=== PATIENT | female | born 1980 | race Caucasian/White ===

== ENCOUNTER 2020-01-22 14:13 | Outpatient (CLI) | payer BC, SELFPAY ==
--- NOTE | ~2020-01-22 | US_ITS ---
EXAMINATION: US pelvic complete w TV DATE: 01/22/2020 15:17 INDICATION: Pelvic pain and abnormal uterine bleeding, history of ablation in May 2019 TECHNIQUE: Multiple transabdominal and endovaginal sonographic images of the pelvis were obtained. COMPARISON: CT, 03/24/2015 FINDINGS: The uterus measures 10.3 x 7.8 x 8.8 cm. The endometrial complex measures 7 mm. There is a 6.5 x 6.5 x 4.7 cm area of heterogeneous echogenicity in the myometrium. This area does demonstrate i nternal blood flow. When compared to prior CT, a mass with the appearance of an intramural fibroid wi th seen in this location. The right ovary measures 4.5 x 2.7 x 1.5 cm. The left ovary measures 2.9 x 2.7 x 1.5 cm. There is no free fluid in the pelvis. IMPRESSION: 1. Likely intramural fibroid without definite etiology for abnormal bleeding identified. Reviewed, dictated and finalized at location B. IMPRESSION: 1. Likely intramural fibroid without definite etiology for abnormal bleeding id entified.
== END 2020-01-22 14:14 | disposition home or self-care (01) ==
LOC: ANHIMG 14:27
PROVIDERS: PCP Internal Medicine; Visit Provider Student in an Organized Health Care Education/Training Program
DX: R10.2 Pelvic and perineal pain (principal)
CPT/HCPCS: 76830; 76856

== ENCOUNTER 2020-02-13 11:40 | Outpatient (CLI) | payer BC, SELFPAY ==
--- NOTE | ~2020-02-13 | XR_ITS ---
XR heel LT min 2V DATE: 02/13/2020 12:03 INDICATION: Left foot pain TECHNIQUE: Axial and lateral views of the calcaneus COMPARISON: None FINDINGS: Mild plantar calcaneal enthesopathy without associated erosive changes or periostitis. No f racture, dislocation or bone destruction of the calcaneus. IMPRESSION: Plantar calcaneal enthesopathy Reviewed, dictated and finalized at location B.
== END 2020-02-13 11:41 | disposition home or self-care (01) ==
PROVIDERS: PCP Internal Medicine; Visit Provider Physician Assistant
DX: M77.32 Calcaneal spur, left foot (principal)
CPT/HCPCS: 73650

== ENCOUNTER 2020-08-13 18:26 | Emergency (ER) | payer BC, SELFPAY ==
--- NOTE | ~2020-08-13 | XR_ITS ---
EXAMINATION: XR chest 2V DATE: 08/13/2020 19:31 INDICATION: Left neck and arm pain. TECHNIQUE: Frontal and lateral views of the chest were obtained. COMPARISON: Chest 2 views 01/30/2014 FINDINGS: The chest demonstrates clear lungs without pneumonia, pleural effusion, or pneumothorax. Th e heart size is normal. Breast implants are noted. Surgical clips in the right upper quadrant are lik surjit from cholecystectomy. IMPRESSION: 1. No acute cardiopulmonary disease. Reviewed, dictated and finalized at location A.
--- NOTE | 2020-08-13 18:29 | ECG_ITS ---
Measurements Intervals [place] Rate: 77 P: 56 MN: 135 QRS: 67 QRSD: 90 T: 49 QT: 359 QTc: 406 Interpretive Statements SINUS RHYTHM Electronically Signed On 08-13-2020 20:14:57 CDT by Rell Roa D.O.
[2020-08-13 18:30] VITALS: BP 143/96; PULSE 86; RESP 20; TEMP 36.4; O2SAT 100
[2020-08-13 18:44] LABS: Basophils Percent Auto 0.2 % (0.2-1.2); Eosinophils Absolute Auto 0.1 K/mm3 (0-0.3); Eosinophils Percent Auto 1.7 % (0-4.4); Hematocrit 38.1 % (37.0-47.0); Hemoglobin 12.7 g/dL (12.0-15.0); Immature Granulocyte Absolute 0.03 K/mm3 (0.00-0.031); Immature Granulocyte Percent A 0.4 % (0-0.5); Lymphocytes Absolute Auto 1.79 K/mm3 (0.9-3.2); Lymphocytes Percent Auto 21.4 % (18.3-44.2); Mean Corpuscular HGB Conc 33.3 g/dl (32-36); Mean Platelet Volume 9.1 fl (7.4-10.4); Monocytes Absolute Auto 0.6 K/mm3 (0.1-0.6); Monocytes Percent Auto 7.4 % (2.6-8.5); Neutrophils Absolute Auto 5.8 K/mm3 (1.3-6.7); Neutrophils Percent Auto 68.9 % (45.5-73.1); Platelet Count Result 326 k/mm3 (150-375); Red Blood Count 3.97 M/mm3 (4.2-5.4); Red Cell Distribution Width 12.5 % (11.5-14.5); White Blood Count 8.4 K/mm3 (4.5-10.0)
[2020-08-13 18:54] LABS: Partial Thromboplastin Time 26.5 SECONDS (22.3-36.8); Prothrombin Time 13.7 Seconds (11.1-14.7)
[2020-08-13 19:02] LABS: Anion Gap 9 mmol/L (8-16); Blood Urea Nitrogen 16 mg/dL (7-17); Calcium 9.3 mg/dL (8.4-10.2); Carbon Dioxide 27 mmol/L (22-30); Chloride 103 mmol/L (98-107); Estimated CRCL calculation 93 ml/min; Estimated Glomerular Filt Rate > 60; Glucose 101 mg/dL (65-105); Potassium 3.3 mmol/L (3.4-5.0); Sodium 139 mmol/L (137-145)
[2020-08-13 19:14] LABS: Troponin I < 0.012 ng/mL (0.000-0.034)
--- NOTE | 2020-08-13 20:08 | ED.NECK ---
HPI - Neck Pain/Injury General Chief Complaint: Neck Pain/Injury Stated Complaint: left neck, arm pain Time Seen by Provider: 08/13/20 20:08 History of Present Illness HPI Narrative: Pain in the left side of the neck for the past week. [place] like sore muscle. Went to the chiropractor yesterday and improved initially. Awoke this moring with similar pain now radiating into the jaw as well. Also associated with tingling in the left hand. She became concerned that she may be having a heart attack. No Chest pain, SOB, nausea. Review of Systems Review of Systems: All systems reviewed & are unremarkable except as noted in HPI and below Constitutional: Constitutional: Denies fever(s) and Denies weakness Eyes: Eyes: Reports no additional eye complaints ENT: Denies dizziness Cardiovascular: Cardiovascular: Denies chest pain Respiratory: Respiratory: Denies dyspnea Gastrointestinal: Gastrointestinal: Denies abdominal pain Genitourinary: Genitourinary: Reports no additional female genitourinary complaints Musculoskeletal: Musculoskeletal: Denies back pain Neurologic: Reports system reviewed and no additional complaints, except as documented [facility] Social History Social History Smoking status: Never smoker Exam Const: General: healthy appearing, no acute distress and alert Orientation/consciousness: patient oriented x3 HENMT: Head: normal to inspection Neck: Other: tender over left SCM and trapezius Chest: Chest palpation & inspection: no tenderness Resp: Effort & Inspection: normal respiratory effort Auscultation: clear to auscultation bilaterally, no rales, no rhonchi and no wheezes Cardio: Jugular venous distension: no JVD Rate: regular rate Rhythm: regular rhythm Heart sounds: no murmurs GI: Inspection: non-distended GI Palp: Yes Soft to palpation and No Tenderness to palpation present (GI) Skin: General skin exam: normal color Neuro: General: patient oriented x3 and moves all extremities Speech: normal speech Extrem: General: no edema Psych: Appearance: well kempt Affect: normal affect Course Vital Signs Vital signs: Vital Signs Temperature 36.4 C 08/13/20 18:30 Pulse Rate 86 08/13/20 18:30 Respiratory Rate 20 08/13/20 18:30 Blood Pressure 143/96 H 08/13/20 18:30 Pulse Oximetry 100 08/13/20 18:30 Temperature 36.4 C 08/13/20 18:30 Pulse Rate 81 08/13/20 21:50 Respiratory Rate 16 08/13/20 21:50 Blood Pressure 135/69 08/13/20 21:50 Pulse Oximetry 100 08/13/20 21:50 MDM - Neck Pain/Injury Differential Diagnosis Differential diagnosis: Likely strain of neck muscle and other (angina) Medical Records Attestation: I reviewed the patient's medical records. Lab Data Attestation: I reviewed the patient's lab results. Result diagrams: 08/13/20 18:36 08/13/20 18:36 Labs: Lab Results 08/13/20 08/13/20 08/13/20 Range/Units 18:36 18:36 18:36 WBC 8.4 (4.5-10.0) K/mm3 RBC 3.97 L (4.2-5.4) M/mm3 Hgb 12.7 (12.0-15.0) g/dL Hct 38.1 (37.0-47.0) % MCV 96.0 (80-100) fl MCH 32.0 (26-34) pg MCHC 33.3 (32-36) g/dl RDW 12.5 (11.5-14.5) % Plt Count 326 (150-375) k/mm3 MPV 9.1 (7.4-10.4) fl Immature Gran % (Auto) 0.4 (0-0.5) % Neut % (Auto) 68.9 (45.5-73.1) % Lymph % (Auto) 21.4 (18.3-44.2) % [place] % (Auto) 7.4 (2.6-8.5) % Eos % (Auto) 1.7 (0-4.4) % Baso % (Auto) 0.2 (0.2-1.2) % Lymph # (Auto) 1.79 (0.9-3.2) K/mm3 [place] # (Auto) 0.6 (0.1-0.6) K/mm3 Eos # (Auto) 0.1 (0-0.3) K/mm3 Baso # (Auto) 0.0 (0.0-0.1) K/mm3 Abs Immat Gran (auto) 0.03 (0.00-0.031) K/mm3 Absolute Neuts (auto) 5.8 (1.3-6.7) K/mm3 Absolute Nucleated RBC 0.0 (0.0-0.012) K/mm3 Nucleated RBC % 0.0 (0.0-0.2) % PT 13.7 (11.1-14.7) Seconds INR 1.0 APTT 26.5 (22.3-36.8) SECONDS Sodium 139
[2020-08-13 21:50] VITALS: BP 135/69; PULSE 81; RESP 16; O2SAT 100
== END 2020-08-13 21:51 | disposition home or self-care (01) ==
PROVIDERS: Emergency Medicine; Emergency Provider Emergency Medicine; PCP Internal Medicine
DX: M54.12 Radiculopathy, cervical region (principal)
CPT/HCPCS: 36415; 71046; 80048; 84484; 85025; 85610; 85730; 93005; 99284

== ENCOUNTER 2020-11-05 09:11 | Outpatient (CLI) | payer BC, SELFPAY ==
[2020-11-05 09:57] LABS: Add Urine Microscopic? YES; Appearance Urine Cloudy (Clear); Bacteria Urine Trace /hpf; Bilirubin Urine Negative (Negative); Blood Urine Negative (Negative); Color Urine Yellow (Yellow); Glucose Urine UA Negative (Negative); Ketones Urine Negative (Negative); Leukocyte Esterase Ur 3+ LEU/UL (NEGATIVE); Nitrate Urine Negative (Negative); Protein Urine Negative (Negative); RBC Urine 0-2 /hpf (0-2); Specific Grav Ur 1.014 (1.001-1.035); Squamous Epithelial Cell Urine Many /hpf (Few); Urobilinogen Urine Negative mg/dL (<2.0)
[2020-11-05 16:06] LABS: Vitamin D 25 Hydroxy 74.8 ng/mL
== END 2020-11-05 09:12 | disposition home or self-care (01) ==
PROVIDERS: PCP Physician Assistant; Visit Provider Physician Assistant
DX: E55.9 Vitamin D deficiency, unspecified (principal); R30.0 Dysuria
CPT/HCPCS: 36415; 81001; 82306; 87086

== ENCOUNTER 2020-12-13 17:03 | Emergency (ER) | payer BC, SELFPAY ==
--- NOTE | 2020-12-13 17:19 | PC.NURSE ---
pt states she is leaving. states she is going to call pmd. notified of risks of leaving without being evaluated
== END 2020-12-13 17:35 | disposition left against medical advice (07) ==
DX: Z53.21 Procedure and treatment not carried out due to patient leaving prior to being seen by health care provider (principal)
CPT/HCPCS: 99199

== ENCOUNTER 2021-02-18 08:31 | Outpatient (CLI) | payer BC, SELFPAY | END 2021-02-18 08:32 | disposition home or self-care (01) | LOC: ANHSURGERY 08:36 | PROVIDERS: PCP Physician Assistant; Visit Provider Obstetrics & Gynecology | DX: R10.2 Pelvic and perineal pain (principal) | CPT/HCPCS: 36415; 86850; 86900; 86901 ==

== ENCOUNTER 2021-02-23 00:55 | Day surgery (SDC) | payer BC, SELFPAY ==
[2021-02-15 15:12] VITALS: BMI 23.1
[2021-02-23] VITALS (11 sets, daily range): BP systolic 105–139; BP diastolic 69–85; PULSE 71–89; RESP 11–18; TEMP 36.2–36.8; O2SAT 98–100
[2021-02-23] MEDS: ACETAMINOPHEN 500 MG TABLET 1000 MG PO (10:50)
[2021-02-23] MEDS: KETOROLAC 15 MG/ML VIAL (*BKC) IV PUSH (10:59)
[2021-02-23] MEDS: LACTATED RINGERS 1,000 ML 30 ML IV CONT ×2 (11:00→14:57)
--- NOTE | 2021-02-23 11:16 | P.PNAN_ITS ---
Anes - Initial Pre Proc Eval Procedure: Operation Date: 02/23/21 12:00 Proposed Procedures p Robotic Assisted Total Vaginal Hysterectomy with Bilateral Salpingectomy - Jose Rodriguez MD Date/Time: 02/23/21 11:16 Surgeon: Jose Rodriguez MD Pre Op Diagnosis: pelvic pain, enlarged uterus Patient Data Age: 40 Gender: F Height: 1.63 m Weight: 61.24 kg Allergies Allergy/AdvReac Type Severity Reaction Status Date / Time No Known Allergies Allergy Verified 02/15/21 15:06 Home Medications Medication Instructions Recorded Confirmed Type multivitamin 1 tablet PO DAILY 02/13/20 02/15/21 History lubiprostone 8 mcg capsule 8 mcg PO BID #60 cap 11/05/20 02/15/21 Rx hydrocodone-acetaminophen 1 - 2 tablet PO Q4-6H PRN 02/15/21 02/15/21 History Patient hx anesthesia problems: post op nausea/vomiting (scopolamine patch applied) Family hx anesthesia problems: none Results Review: All pre-operative results and documents have been reviewed as part of the pre-operative evaluation. [facility] Past Medical History Medical History (Updated 11/05/20 @ 08:53 by Sanjeev Agudelo PA-C) Cervical abrasion FH: cholecystectomy Surgical History Surgical History H/O dilation and curettage H/O lumpectomy History of bilateral tubal ligation Family History Family History Father Leukemia Mother No problems noted. Mother Family history of epilepsy Patient's mother is in good health Father Patient's father is Family history of malignant neoplasm Other Cerebrovascular accident Family history of allergic disorder Hypertension Social History Social History Smoking packs per day: 0.1 Smoking cigarettes per day: 2.0 Years smoked: 4 Smoking pack-years: 0.40 Smoking status: Former smoker Tobacco type: cigarettes Second hand tobacco smoke exposure: No Smoking end date: 02/15/11 Alcohol intake: current Drinks per week: 2 Alcohol use details: BEER Substance use: never Living arrangements: with family Spiritual care concerns: No Anes - Eval Final PreProcedure Day of Procedure 02/23/21 11:16 Patient weight: normal Heart: regular rate and rhythm Lungs: clear to auscultation Airway: Mallampati scale class II Neurological: alert and oriented Last oral intake: >/= 8 hours ASA classification: II Emergent: no Anesthetic plan: proceed Anesthesia type and monitoring: general ETT and standard monitoring Results Review: All pre-operative results and documents have been reviewed as part of the pre-operative evaluation. Informed Consent: The patient's anesthetic plan and its attendant risks and benefits were discussed with the patient/family/POA. Questions were solicited and answers provided to the satisfaction of the patient/family/POA.
[2021-02-23] MEDS: SCOPOLAMINE 1.5 MG PATCH TRANSDERM (11:19)
--- NOTE | 2021-02-23 12:11 | PM.IMHP ---
H&P: HPI History of Present Illness Date/Time: 02/23/21 12:11 40 y/o with fibroid uterus. She has had an endometrial ablation and a tubal ligation, and her menstrual flow is very light. But she still has quite a lot of cramping. Sometimes her pain is incapacitating, and it has worsened each cycle. She is here for definitive management with hysterectomy. Chief Complaint: Painful periods Review of Systems Review of Systems: All systems reviewed & are unremarkable except as noted in HPI and below PMFSH Past Medical History Medical History (Updated 02/23/21 @ 12:15 by Jose Rodriguez MD) Cervical abrasion FH: cholecystectomy Surgical History Surgical History H/O dilation and curettage H/O lumpectomy History of bilateral tubal ligation History of breast augmentation History of endometrial ablation Family History Family History Father Leukemia Mother No problems noted. Mother Family history of epilepsy Patient's mother is in good health Father Patient's father is Family history of malignant neoplasm Other Cerebrovascular accident Family history of allergic disorder Hypertension Social History Social History Smoking packs per day: 0.1 Smoking cigarettes per day: 2.0 Years smoked: 4 Smoking pack-years: 0.40 Smoking status: Former smoker Tobacco type: cigarettes Second hand tobacco smoke exposure: No Smoking end date: 02/15/11 Alcohol intake: current Drinks per week: 2 Alcohol use details: BEER Substance use: never Living arrangements: with family Spiritual care concerns: No Meds Home Medications and Allergies Home Medications Medication Instructions Recorded Confirmed Type multivitamin 1 tablet PO DAILY 02/13/20 02/23/21 History lubiprostone 8 mcg capsule 8 mcg PO BID #60 cap 11/05/20 02/23/21 Rx hydrocodone-acetaminophen 1 - 2 tablet PO Q4-6H PRN 02/15/21 02/23/21 History Allergies Allergy/AdvReac Type Severity Reaction Status Date / Time No Known Allergies Allergy Verified 02/23/21 11:29 Vital Signs Vital Signs - 24 hr 02/23/21 11:00 Temperature 36.7 C Pulse Rate 87 Respiratory Rate 18 Blood Pressure 139/73 Pulse Oximetry 100 Exam Const: Orientation/consciousness: patient oriented x3 Other: Well-developed, well-nourished female in no acute distress. Neck: Thyroid: thyroid normal Lymphatic: no lymphadenopathy noted (in neck, axilla or inguinal nodes) Resp: Effort & Inspection: normal respiratory effort Auscultation: clear to auscultation bilaterally Cardio: Rate: regular rate Rhythm: regular rhythm Heart sounds: S1 normal heart sound present and S2 normal heart sound present GI: Other: ABD: Soft, nontender, nondistended. No guarding or rebound tenderness. No hepatosplenomegaly. : General: Yes no CVA tenderness Other: External genitalia: normal female hair distribution, without lesion. Urethral meatus: no lesion, non prolapsed. Bladder: no mass, nontender Vagina: well-estrogenized, without lesion or discharge. No cystocele or rectocele. Cervix: no lesion or discharge. Uterus: enlarged, anteverted, freely mobile, nontender Adnexa: no mass or tenderness. Anus/perineum: no lesions, nontender Back/Spine/Pelvis: Back: no CVA tenderness Skin: General skin exam: normal color and no rashes or lesions noted Neuro: General: patient oriented x3 Extrem: Other: Extremities: nontender with no edema Psych: Mental Status: mental status grossly normal Affect: normal affect Assessment and Plan Assessment and plan (1) Fibroid uterus: Code(s): D25.9 - Leiomyoma of uterus, unspecified Status: Acute (2) Pelvic pain: Code(s): R10.2 - Pelvic and perineal pain Status: Acute Assessment and Plan:
--- NOTE | 2021-02-23 12:17 | WPDHPUPDATE1 ---
History and Physical Update Update Date/Time: 02/23/21 12:17 History and Physical has been reviewed, including an updated exam of the patient. There are NO changes in the patient's condition. Risks, benefits, and alternatives have been discussed and questions answered. Patient agrees to proceed with procedure.
[2021-02-23] MEDS: ceFAZolin 2 GM/D5W 50 ML 2 GM/50 ML BAG IVPB (12:32)
--- NOTE | 2021-02-23 14:15 | W.PM.PROC2 ---
Procedure Note - Detailed Date of Procedure 02/23/21 Pre-op Diagnosis Fibroid uterus Dysmenorrhea Pelvic pain Post-op Diagnosis same Procedure Performed Robotic assisted total vaginal hysterectomy with bilateral salpingectomies Surgeon Jose Rodriguez MD Anesthesia general Findings Enlarged, fibroid uterus. Small right ovarian cyst. Normal-appearing left ovary. Bilateral tubes with prior tubal ligation. Normal-appearing pelvis otherwise. Bilateral ureters were visualized throughout the procedure. Description of Procedure The patient was taken to the operating room where general endotracheal anesthesia was administered. She was prepared and draped in the usual sterile fashion in the dorsal lithotomy position. The bladder was drained with Murray catheter. The cervix was visualized and the anterior lip was grasped using a single-tooth tenaculum. The cervix was gently dilated using Hegar dilators. The DENNY 2 uterine manipulator was then placed and the tenaculum was removed. Gloves were changed and attention was turned to the abdomen. A supraumbilical skin incision was made with the scalpel. The Veress needle was advanced and pneumoperitoneum was administered using carbon dioxide gas. The bladeless trocar was then advanced. Intraperitoneal placement was confirmed using the laparoscope. A survey of the pelvis yielded the findings above. The vermiform appendix looked a little enlarged to me. Dr. Elizondo of general surgery was asked to offer an opinion, and he believed appendix to be within normal limits. Lateral ports and an pizza hut assistant port were all placed using bladeless trocars under direct laparoscopic visualization. She was placed in Trendelenburg position and the patient cart was docked. I assumed the console. The ureters were visualized bilaterally. The round ligament on the right was divided. The Fallopian tube was dissected free of the right ovary. The uteroovarian ligament was divided. The broad ligament was divided, skeletonizing the uterine artery on the right. The bladder was reflected away. The left side was similarly dissected. Colpotomy was performed circumferentially. The specimen was removed and passed off to be sent to pathology. The vaginal cuff was reapproximated using 0 Vicryl in interrupted [id number] fashion. The pelvis was irrigated copiously using warmed normal saline. Rigorous hemostasis was assured. HemaDerm was applied to the vaginal cuff. The pedicles were inspected once again. The ports were then withdrawn and the gas was allowed to escape. The skin incisions were reapproximated using 4 0 Monocryl in interrupted subcuticular fashion. Dermaflex was applied externally. Sponge, lap, needle and instrument counts were correct. The patient was awakened and taken to the recovery room in stable condition. I was present and scrubbed through the entire procedure. Estimated Blood Loss 50 Drains Yes (murray) Packing No Pathology yes (Uterus, cervix, bilateral tubes) Complications None Condition stable Disposition PACU
[2021-02-23] MEDS: fentaNYL CITRATE INJ (*CRX) 100 MCG/2 ML VIAL 25 MCG IV PUSH ×6 (14:40→15:23)
--- NOTE | 2021-02-23 15:54 | SUR.PHASEI ---
25 mcg of fentanyl given at 1545.
[2021-02-23] MEDS: MORPHINE SULFATE (*CRX) 4 MG/ML INJ IV PUSH (16:36)
[2021-02-23] MEDS: SIMETHICONE 80 MG TAB.CHEW PO ×2 (16:36→18:51)
[2021-02-23] MEDS: ONDANSETRON INJ 4 MG/2 ML VIAL IV PUSH (16:36)
[2021-02-23] MEDS: DEXTROSE 5%/0.45% SOD CHL 1,000 ML 125 ML IV CONT (16:39)
--- NOTE | 2021-02-23 16:47 | ADMGEN ---
1555-This patient, Veena Nunez, was admitted to OB 2nd Floor Room 283-00. Patient/family oriented to hospital policies and general routines including ID bracelet, bed and alarms, visiting hours, pain management, procedures, bathroom and other care routines, personal items, smoking policy, room service/diet, and visiting hours. Information on how to activate the Rapid Response Team has been discussed. Patient/Family are encouraged to report perceived risks to care and to ask questions if they do not understand what they are told or what they should do.
[2021-02-23] MEDS: HYDROcodone/acetaminophen (*CRX) 5-325 MG TABLET 1 TAB PO (18:53)
[2021-02-23] MEDS: IBUPROFEN 600 MG TABLET PO (18:54)
[2021-02-23] MEDS: ENOXAPARIN 40 MG/0.4 ML SYRINGE SUB-Q (21:06)
[2021-02-24] MEDS: SIMETHICONE 80 MG TAB.CHEW PO ×2 (00:23→08:22)
[2021-02-24] MEDS: IBUPROFEN 600 MG TABLET PO ×2 (00:24→08:21)
[2021-02-24] MEDS: HYDROcodone/acetaminophen (*CRX) 5-325 MG TABLET 1 TAB PO ×2 (00:24→08:22)
[2021-02-24 00:30] VITALS: BP 115/87; PULSE 89; RESP 18; TEMP 36.8; O2SAT 100
[2021-02-24 05:20] VITALS: BP 117/80; PULSE 86; RESP 18; TEMP 36.8
[2021-02-24 05:53] LABS: Basophils Percent Auto 0.3 % (0.2-1.2); Eosinophils Percent Auto 0.1 % (0-4.4); Hematocrit 30.1 % (37.0-47.0); Hemoglobin 9.9 g/dL (12.0-15.0); Immature Granulocyte Absolute 0.05 K/mm3 (0.00-0.031); Immature Granulocyte Percent A 0.5 % (0-0.5); Lymphocytes Absolute Auto 1.11 K/mm3 (0.9-3.2); Mean Corpuscular HGB Conc 32.9 g/dl (32-36); Mean Corpuscular Hemoglobin 32.6 pg (26-34); Monocytes Percent Auto 9.5 % (2.6-8.5); Neutrophils Percent Auto 78.6 % (45.5-73.1); Platelet Count Result 306 k/mm3 (150-375); Red Blood Count 3.04 M/mm3 (4.2-5.4); Red Cell Distribution Width 12.5 % (11.5-14.5); White Blood Count 10.1 K/mm3 (4.5-10.0)
--- NOTE | 2021-02-24 07:17 | WPDANESPN ---
Anes - Prog Note Post-Op Date/Time: 02/24/21 07:17 Cardiovascular status: normal Respiratory status: normal Airway patency: baseline Mental status: baseline Post-Op hydration status: normal Vital Signs: Last Vital Signs Temp 98.3 F 02/24/21 05:20 Pulse 86 02/24/21 05:20 Resp 18 02/24/21 05:20 BP 117/80 02/24/21 05:20 Pulse Ox 100 02/24/21 00:30 Pain Score (VAS): 05/23 I/O: Intake & Output 02/23/21 02/23/21 02/24/21 15:59 23:59 07:59 Intake Total 550 1400 Output Total 902 512 3290 Balance 350 -250 400 Laboratory Tests 02/24/21 05:16 02/24/21 05:16 WBC 10.1 H RBC 3.04 L Hgb 9.9 L Hct 30.1 L MCV 99.0 MCH 32.6 MCHC 32.9 RDW 12.5 Plt Count 306 MPV 9.0 Immature Gran % (Auto) 0.5 Neut % (Auto) 78.6 H Lymph % (Auto) 11.[address] [place] % (Auto) 9.5 H Eos % (Auto) 0.1 Baso % (Auto) 0.3 Lymph # (Auto) 1.11 [place] # (Auto) 1.0 H Eos # (Auto) 0.0 Baso # (Auto) 0.0 Abs Immat Gran (auto) 0.05 H Absolute Neuts (auto) 8.0 H Absolute Nucleated RBC 0.0 Nucleated RBC % 0.0 Post-procedural complaints: none Patient Feedback: Patient satisfied with anesthetic care.
[2021-02-24 08:00] VITALS: BP 103/64; PULSE 68; RESP 16; TEMP 37.3; O2SAT 100
[2021-02-24] MEDS: DOCUSATE SODIUM 100 MG CAPSULE PO (08:22)
[2021-02-24 08:30] VITALS: PULSE 68; RESP 16; O2SAT 100
--- NOTE | 2021-02-24 08:53 | PM.GYNPNOP ---
[employer] - A/P Postoperative Procedures: Procedures Operation Date: 02/23/21 12:00 Actual Procedure Side Surgeon p Robotic Assisted Total Vaginal Hysterectomy with Bilateral Salpingectomy Bilateral Jose Rodriguez MD A: POD#1, doing well. P: Home to f/u 2 weeks. Time Spent With Patient Time with patient: less than 15 minutes [employer]- PN:Subj Post-Op Subjective Date/time seen: 02/24/21 08:53 Interval history: Pain OK. Tolerating diet. Voiding. Would like to go home. Exam Narrative: AVSS I/O OK ABD soft, nontender. Incisions c/d/i. EXT nontender [employer] - PN: Obj Data Vital Signs Vital Signs: Vital Signs - 24 hr 02/23/21 11:00 02/23/21 14:30 02/23/21 14:35 Temperature 36.7 C 36.5 C Pulse Rate 87 77 89 Respiratory Rate 18 13 18 Blood Pressure 139/73 108/72 112/77 Pulse Oximetry 100 100 100 02/23/21 14:45 02/23/21 14:53 02/23/21 15:00 Temperature Pulse Rate 71 72 82 Respiratory Rate 15 17 14 Blood Pressure 116/78 115/80 116/79 Pulse Oximetry 100 100 100 02/23/21 15:15 02/23/21 15:16 02/23/21 15:30 Temperature Pulse Rate 75 73 80 Respiratory Rate 12 13 11 L Blood Pressure 110/85 105/75 114/78 Pulse Oximetry 100 98 99 02/23/21 16:15 02/23/21 19:50 02/24/21 00:30 Temperature 36.2 C L 36.8 C 36.8 C Pulse Rate 78 82 89 Respiratory Rate 16 16 18 Blood Pressure 120/73 120/69 115/87 Pulse Oximetry 100 100 100 02/24/21 05:20 02/24/21 08:00 02/24/21 08:30 Temperature 36.8 C 37.3 C Pulse Rate 86 68 68 Respiratory Rate 18 16 16 Blood Pressure 117/80 103/64 Pulse Oximetry 100 100 Intake/Output Intake/Output: Intake & Output 02/21/21 02/22/21 02/23/21 02/24/21 23:59 23:59 23:59 23:59 Intake Total 550 1400 Output Total 450 1000 Balance 100 400 Meds/Results Medications: Active Medications Generic Name Dose Route Start Last Admin Trade Name Freq PRN Reason Stop Dose Admin Hydrocodone Bitart/Acetaminophen 1 tab 02/23/21 15:52 02/24/21 08:22 Hydrocodone/Acetaminophen (*Crx) 5-325 Mg Tablet PO 1 tab Q3H PRN Administration Pain Rated 5 or Less Hydrocodone Bitart/Acetaminophen 1 tab 02/23/21 15:52 Hydrocodone/Acetaminophen (*Crx) 10-325 Mg Tablet PO Q3H PRN Pain Rated 6 or Greater Docusate Sodium 100 mg 02/23/21 17:00 02/24/21 08:22 Docusate Sodium 100 Mg Capsule PO 100 mg BID SONJA Administration Enoxaparin Sodium 40 mg 02/23/21 21:00 02/23/21 21:06 Enoxaparin 40 Mg/0.4 Ml Syringe SUB-Q 40 mg HS SONJA Administration Dextrose/Sodium Chloride 1,000 mls @ 125 mls/hr 02/23/21 15:52 02/24/21 00:20 Dextrose 5% Sodium Chloride 0.45% IV CONT Infused .Q8H SONJA Infusion Ibuprofen 600 mg 02/23/21 15:52 02/24/21 08:21 Ibuprofen 600 Mg Tablet PO 600 mg Q6H PRN Administration Cramping Morphine Sulfate 4 mg 02/23/21 15:52 02/23/21 16:36 Morphine Sulfate (*Crx) 4 Mg/Ml Inj IV PUSH 4 mg Q4H PRN Administration Pain Rated 7-10 Naloxone HCl 0.1 mg 02/23/21 15:52 Naloxone Hcl 0.4 Mg/Ml Vial IV PUSH Q2M PRN Respiratory rate less than 10 Ondansetron HCl 4 mg 02/23/21 15:52 02/23/21 16:36 Ondansetron Inj 4 Mg/2 Ml Vial IV PUSH 4 mg Q6H PRN Administration Nausea Simethicone 80 mg 02/23/21 15:52 02/24/21 08:22 Simethicone 80 Mg Tab.Chew PO 80 mg Q2H PRN Administration Gas Labs CBC & Chem 7: 02/24/21 05:16 Labs: Laboratory Results - last 24 hr 02/24/21 05:16 WBC 10.1 H RBC 3.04 L Hgb 9.9 L Hct 30.1 L MCV 99.0 MCH 32.6 MCHC 32.9 RDW 12.5 Plt Count 306 MPV 9.0 Immature Gran % (Auto) 0.5 Neut % (Auto) 78.6 H Lymph % (Auto) 11.0 L [place] % (Auto) 9.5 H Eos % (Auto) 0.1 Baso % (Auto) 0.3 Lymph # (Auto) 1.11 [place] # (Auto) 1.0 H Eos # (Auto) 0.0 Baso # (Auto) 0.0 Abs Immat Gran (auto) 0.05 H Absolute Neuts (auto) 8.0 H Absolute Nucleated RBC 0.0 Nucleated RBC % 0.0
--- NOTE | 2021-02-24 08:54 | PM.DS ---
DS: Admitting Diagnosis Discharge Date 02/24/21 Admitting Diagnosis Dysmenorrhea Fibroid uterus DS: Discharge Diagnosis Discharge Diagnosis (1) Dysmenorrhea: Code(s): N94.6 - Dysmenorrhea, unspecified Status: Acute (2) Pelvic pain: Code(s): R10.2 - Pelvic and perineal pain Status: Acute (3) Fibroid uterus: Code(s): D25.9 - Leiomyoma of uterus, unspecified Status: Acute DS: Summary Hospital Course Hospital Course: Admitted to hospital on the date of scheduled surgery. Please see op note for details. Postoperatively did well and was able to go home on POD#1. DS: Data Data Completed and Pending Pending studies at discharge: Pending at discharge 02/23/21 13:48 Surgical [PTH] Routine Labs on day of discharge: Labs from last 24 hours 02/24/21 05:16 WBC 10.1 H RBC 3.04 L Hgb 9.9 L Hct 30.1 L MCV 99.0 MCH 32.6 MCHC 32.9 RDW 12.5 Plt Count 306 MPV 9.0 Immature Gran % (Auto) 0.5 Neut % (Auto) 78.6 H Lymph % (Auto) 11.0 L [place] % (Auto) 9.5 H Eos % (Auto) 0.1 Baso % (Auto) 0.3 Lymph # (Auto) 1.11 [place] # (Auto) 1.0 H Eos # (Auto) 0.0 Baso # (Auto) 0.0 Abs Immat Gran (auto) 0.05 H Absolute Neuts (auto) 8.0 H Absolute Nucleated RBC 0.0 Nucleated RBC % 0.0 Discharge Plan Discharge Patient Disposition: Home, Self-Care Discharge Instructions: Remove the Scopolamine patch that was placed behind your ear in 72 hours or less. (APPLIED 02/23/21) Wash your hands after touching. Call or return if temperature above 100.4? F, increased abdominal pain, increased vaginal bleeding or any new problems. Stand Alone Forms: General Discharge Instructions Follow-up/Referrals: Jose Rodriguez MD [Physician] - 2 Weeks Discharge Medications: New tramadol 50 mg tablet 50 mg PO Q4-6H PRN (Reason: pain) Qty: 30 RF: 0 Continued multivitamin [Daily Multi-Vitamin] Tablet 1 tablet PO DAILY RF: 0 lubiprostone [Amitiza] 8 mcg capsule 8 mcg PO BID Qty: 60 RF: 3 Discontinued hydrocodone-acetaminophen 5-325 mg tablet 1 - 2 tablet PO Q4-6H PRN (Reason: PAIN) RF: 0
== END 2021-02-24 13:00 | disposition home or self-care (01) ==
LOC: ANHSURGERY 11:54 → ANHOB2 16:17
PROVIDERS: PCP Physician Assistant; Visit Provider Obstetrics & Gynecology
PROC: (CPT 58554; principal; 2021-02-23 12:00)
DX: D25.1 Intramural leiomyoma of uterus (principal); N94.89 Other specified conditions associated with female genital organs and menstrual cycle; N83.8 Other noninflammatory disorders of ovary, fallopian tube and broad ligament; N80.0 Endometriosis of uterus; N80.2 Endometriosis of fallopian tube; N73.6 Female pelvic peritoneal adhesions (postinfective); N83.201 Unspecified ovarian cyst, right side; N94.6 Dysmenorrhea, unspecified; R10.2 Pelvic and perineal pain; Z87.891 Personal history of nicotine dependence
CPT/HCPCS: 58554; S2900; 36415; 85025; 88307; A9270; J0690; J1170; J1650; J1885; J2250; J2270; J2405; J3010; J7030; J7120

== ENCOUNTER 2022-01-19 08:25 | Outpatient (CLI) | payer BC, SELFPAY ==
--- NOTE | 2022-01-31 16:19 | WPDHOLTEREM ---
Holter/Event Monitor Holter/Event Monitor Date of procedure: 01/19/22 Holter/Event Procedure: 48 Hr Holter Monitor Indications: Palpitations Conclusion: 1. 48 hour holter monitor on 01/19/22. 2. Underlying rhythm is sinus rhythm. HR range 56-128 bpm; average HR 75 bpm. 3. There are 33 premature supraventricular complexes and 1 supraventricular couplet. No supraventricular tachycardia. 4. There are 40 premature ventricular complexes. No ventricular tachycardia. 5. No sinoatrial or atrioventricular blocks. No significant pauses greater than 2 seconds. 6. No symptoms available for correlation.
== END 2022-01-19 08:26 | disposition home or self-care (01) ==
PROVIDERS: PCP Physician Assistant; Visit Provider Physician Assistant
DX: R00.2 Palpitations (principal)
CPT/HCPCS: 93225; 93226

== ENCOUNTER 2022-01-27 15:42 | Outpatient (CLI) | payer BC, SELFPAY ==
--- NOTE | ~2022-01-27 | XR_ITS ---
EXAMINATION: XR lumbar spine 6V w bending DATE: 01/27/2022 16:35 INDICATION: Low back pain. TECHNIQUE: 7 views of lumbar spine including flexion and extension views were obtained. COMPARISON: Lumbar spine radiographs 04/04/2015 FINDINGS: There is 3 degrees levocurvature of lumbar spine. Vertebral body heights and intervertebral disc heights are normal. There is normal motion with flexion and extension. The facet joints are nor mal. Surgical clips in the right upper quadrant are likely from cholecystectomy. IMPRESSION: 1. No etiology for the patient's symptoms. Reviewed, dictated and finalized at location A.
--- NOTE | ~2022-01-27 | XR_ITS ---
EXAMINATION: XR thoracic spine 3V DATE: 01/27/2022 16:34 INDICATION: Dorsalgia, unspecified. TECHNIQUE: 3 views of thoracic spine on 4 radiographs were obtained. COMPARISON: None. FINDINGS: There is 7 degrees levocurvature of upper thoracic spine. Vertebral body heights are normal . There is mildly decreased disc height at multiple levels in mid and upper thoracic spine. There are endplate osteophytes at multiple levels. There are surgical clips in the abdomen. IMPRESSION: 1. Mild thoracic spondylosis. Reviewed, dictated and finalized at location A.
--- NOTE | ~2022-01-27 | XR_ITS ---
EXAMINATION: XR cervical spine 4-5V DATE: 01/27/2022 16:35 INDICATION: Neck pain. TECHNIQUE: 5 views of cervical spine were obtained. COMPARISON: None. FINDINGS: There is 2 mm retrolisthesis of C5 on C6. There is 9 degrees dextrocurvature of cervical sp ine. Vertebral body heights are normal. There is mildly decreased disc height at C4-C5 and moderately decreased disc height at C5-C6. Facet joints are unremarkable. There is mild central canal stenosis at C5-C6. No prevertebral soft tissue swelling. IMPRESSION: 1. Moderate cervical spondylosis. Reviewed, dictated and finalized at location A.
== END 2022-01-27 15:43 | disposition home or self-care (01) ==
PROVIDERS: PCP Physician Assistant; Visit Provider Physician Assistant
DX: M47.894 Other spondylosis, thoracic region (principal); M47.892 Other spondylosis, cervical region
CPT/HCPCS: 72050; 72072; 72114

== ENCOUNTER 2022-02-12 08:50 | Outpatient (CLI) | payer BC, SELFPAY ==
--- NOTE | ~2022-02-12 | MR_ITS ---
EXAMINATION: MR thoracic spine wo con DATE: 02/12/2022 10:22 INDICATION: Thoracic back pain. TECHNIQUE: Magnetic resonance imaging (MRI) of the thoracic spine was performed without intravenous c ontrast. COMPARISON: Thoracic spine radiographs 01/27/2022 FINDINGS: There is 8 degrees levocurvature of upper thoracic spine. Vertebral body heights are normal . There is a hemangioma in T12 vertebral body. There is mildly decreased disc height from T3-T4 throu gh T8-T9. The discs do not extend beyond the endplate margins. There is multilevel facet joint osteoa rthritis, mild at most levels. On the right, there is severe facet joint osteoarthritis at T4-T5. On the right, there is mild neural foraminal stenosis at T1-T2 and T4-T5. The spinal cord signal intensi ty is normal. The conus medullaris is at L1. IMPRESSION: 1. Mild thoracic spondylosis. Reviewed, dictated and finalized at location B.
--- NOTE | ~2022-02-12 | MR_ITS ---
EXAMINATION: MR cervical spine wo con DATE: 02/12/2022 10:20 INDICATION: Thoracic spondylosis. Neck pain. TECHNIQUE: Magnetic resonance imaging (MRI) of the cervical spine was performed without intravenous c ontrast. Sequences included sagittal T2-weighted FSE, sagittal T2-weighted FS FSE, sagittal T1-weight ed FSE, axial MERGE, and axial T2-weighted FSE. COMPARISON: Cervical spine radiographs 01/27/2022 FINDINGS: Partially visualized is levocurvature of cervicothoracic spine. Vertebral body heights are normal. There is mildly decreased disc height at C5-C6. The spinal cord signal intensity is normal. T he following disc levels are specifically discussed: C2-C3: The disc does not extend beyond the endplate margin. There is no uncovertebral joint osteoarth ritis. There is mild left facet joint osteoarthritis. There is no neural foraminal stenosis. There is no central canal stenosis. C3-C4: The disc does not extend beyond the endplate margin. There is no uncovertebral joint osteoarth ritis. There is mild left facet joint osteoarthritis. There is no neural foraminal stenosis. There is no central canal stenosis. C4-C5: There is a central extrusion. There is mild bilateral uncovertebral joint osteoarthritis. Ther e is mild left facet joint osteoarthritis. There is no neural foraminal stenosis. There is mild centr al canal stenosis. C5-C6: The disc is bulging. There is mild bilateral uncovertebral joint osteoarthritis. There is mild left facet joint osteoarthritis. There is mild right neural foraminal stenosis. There is mild centra l canal stenosis. C6-C7: There is a right central protrusion. There is no uncovertebral joint osteoarthritis. There is mild right facet joint osteoarthritis. There is no neural foraminal stenosis. There is no central can al stenosis. C7-T1: The disc does not extend beyond the endplate margin. There is no uncovertebral joint osteoarth ritis. There is moderate right and mild left facet joint osteoarthritis. There is mild right neural f oraminal stenosis. There is no central canal stenosis. IMPRESSION: 1. Mild cervical spondylosis. Reviewed, dictated and finalized at location B.
== END 2022-02-12 08:51 | disposition home or self-care (01) ==
PROVIDERS: PCP Physician Assistant; Visit Provider Physician Assistant
DX: M47.894 Other spondylosis, thoracic region (principal); M47.892 Other spondylosis, cervical region
CPT/HCPCS: 72141; 72146

== ENCOUNTER 2022-05-12 07:45 | Outpatient (CLI) | payer BC, SELFPAY ==
--- NOTE | ~2022-05-12 | MMUS_ITS ---
EXAMINATION: MM diag cecy implant BI w emily, US breast BI complete HISTORY: Right breast pain TECHNIQUE: ML, MLO and CC implant and implant displaced 3-D tomosynthesis images of both breasts were performed and synthetic 2-D images were generated. CAD analysis was submitted and interpreted. High resolution complete bilateral breast ultrasound was performed. COMPARISON: 05/13/2019 limited right breast ultrasound examination BREAST PARENCHYMAL COMPOSITION: The breasts are heterogeneously dense, which may obscure small masses . FINDINGS: MAMMOGRAPHIC FINDINGS: Status post bilateral augmentation mammoplasty. Approximately 13 mm mass is noted in the posterior aspect of the upper outer quadrant of the left lilliam ast The heterogeneously dense stroma in both breasts may obscure additional masses. Bilateral complete br east ultrasound examination was performed. No architectural distortion, malignant calcification, skin thickening or retraction of either breast is noted. ULTRASOUND: No suspicious mass or shadowing of either breast is detected. Right breast: 12:00 5 cm from nipple: 2.7 x 5.1 x 5.9 mm parallel circumscribed sonolucency with through transmissi on posterior enhancement, consistent with benign cysts 1:00 5 cm from nipple: 3.7 x 8.1 x 4.9 mm circumscribed parallel sonolucency without internal vascula rity, consistent with benign lesion 1:00 4 cm from nipple: Parallel circumscribed 2 x 4.5 mm sonolucency with through transmission, consi stent with small cyst Left breast: There is a 7 x 15 x 14 mm simple cyst with through transmission posterior enhancement 10:00 5 cm from nipple: 2 x 5 x 4 mm sonolucency consistent with small cyst 10:00 5 cm from nipple: 3.6 x 1.7 mm parallel circumscribed sonolucency, likely a small cyst IMPRESSION: 1. Benign findings 2. Routine annual mammographic screening is recommended. BI-RADS Category 2: Benign finding(s). Reviewed, dictated and finalized at location A. 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 Benign findings 2. Routine annual mammographic screening is recommended. BI-RADS Category 2: Benign finding(s).
== END 2022-05-12 07:46 ==
LOC: MICIMG 07:45
PROVIDERS: PCP Physician Assistant; Visit Provider Obstetrics & Gynecology
DX: N64.4 Mastodynia (principal)
CPT/HCPCS: 76641; 77062; 77066; G0279

== ENCOUNTER 2022-06-30 08:28 | Outpatient (CLI) | payer BC, SELFPAY ==
--- NOTE | 2022-06-30 11:00 | NEURO_ITS ---
Impression: # Complains of unusual sensation in lower extremities, left more than right. # Normal nerve conduction study including motor and sensor nerves. # Normal bilateral lateral plantar nerves with no evidence of tarsal tunnel syndrome. # Normal needle/EMG exam with no neurogenic changes. Motor Nerve Conduction Lower Extremities Peroneal Nerve Conduction Velocity (m/sec) Terminal Latency (msec) Response Voltage(mV) Popliteal space-Ankle Ankle Extensor Dig Brevis Popliteal space Ankle Right 45 4.5 2 3 Left 49 4.5 1 2 Tibial Nerve Conduction Velocity (m/sec) Terminal Latency (msec) Response Voltage(mV) Popliteal space-Ankle Ankle-Extensor Dig Brevis Popliteal space Ankle Right 47 4.1 4 7 Left 45 4.5 4 7 F-waves Peroneal Nerve (ms) Tibial Nerve (ms) Right 49.3 49.4 Left 48.6 48.9 Right Lateral Planter nerve=4.5ms Left Lateral Plantar nerve=4.4ms Sensory Nerve Conduction Lower Extremities Sural Nerve Stimulation Terminal Latency (msec) Ankle Response Voltage (uV) Ankle Response Velocity (m/sec) Right 3.8 4 42 Left 3.6 10 44 Superficial Peroneal Nerve Stimulation Terminal Latency (msec) Ankle Response Voltage (uV) Ankle Response Velocity (m/sec) Right 3.6 18 44 Left 3.4 7 47 Left Right Muscles Examined Fibrillation Fasciculation Scarcity Voltage Duration Left Right Left Right Left Right Left Right Left Right X X Ant Tibialis X X Gastroc X X Fibularis Long X X Flex Dig Long X X Ext Dig Brev Abd Hallucis Quadriceps Paraspinals MTDD
== END 2022-06-30 08:29 | disposition home or self-care (01) ==
LOC: ANHNEURO 08:29
PROVIDERS: PCP Physician Assistant; Visit Provider Physician Assistant
DX: G62.9 Polyneuropathy, unspecified (principal)
CPT/HCPCS: 95886; 95911

== ENCOUNTER → 2023-01-19 13:21 | Outpatient (CLI) | payer BC, SELFPAY ==
--- NOTE | ~2023-01-19 | XR_ITS ---
Clinical Indication: Bronchitis PA and lateral views of the chest: Comparison: 08/13/2020 Findings: The lungs are clear, without evidence of focal consolidation or pleural effusion. Cardiome diastinal silhouette is within normal limits. Bones and soft tissues are unremarkable. Impression: Normal chest. Reviewed, dictated and finalized at location . Impression: Normal chest.
== END ==
PROVIDERS: PCP Internal Medicine; Visit Provider Internal Medicine
DX: J20.9 Acute bronchitis, unspecified (principal)
CPT/HCPCS: 71046

== ENCOUNTER 2023-07-06 13:34 | Outpatient (CLI) | payer BC, SELFPAY ==
--- NOTE | ~2023-07-06 | XR_ITS ---
EXAMINATION: XR shoulder RT min 2V INDICATION: Right shoulder pain TECHNIQUE: Four views of the right shoulder are submitted. COMPARISON: None FINDINGS: Normal alignment. No fracture. Glenohumeral and acromioclavicular joint spaces are normal. Soft tissues are unremarkable. IMPRESSION: 1. No acute osseous abnormality. Reviewed, dictated and finalized at location B. 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
== END 2023-07-06 13:35 | disposition home or self-care (01) ==
PROVIDERS: PCP Internal Medicine; Visit Provider Internal Medicine
DX: M25.511 Pain in right shoulder (principal)
CPT/HCPCS: 73030

== ENCOUNTER 2023-07-20 08:13 | Outpatient (CLI) | payer BC, SELFPAY ==
--- NOTE | 2023-07-20 11:26 | MMUS_ITS ---
EXAMINATION: MM diagnostic cecy BI w emily, US breast BI complete HISTORY: Right breast swelling, hardening sensation toward the end of the day TECHNIQUE: Full field and spot 3-D tomosynthesis images of both breasts. were performed and synthetic 2-D images were generated. CAD analysis was submitted and interpreted. High resolution bilateral complete breast ultrasound examination including all 4 quadrants and subareolar areas was performed. COMPARISON: 05/12/2022 bilateral diagnostic mammogram and bilateral complete breast ultrasound examination BREAST PARENCHYMAL COMPOSITION: The breasts are extremely dense, which lowers the sensitivity of mammography. FINDINGS: MAMMOGRAPHIC FINDINGS: Approximately 1.7 x 2.2 cm circumscribed low-density mass is noted in the upper outer left breast. Sonographic correlation is recommended. The patient complains of swelling and hardening sensation in the right breast. The extremely dense stroma may obscure masses in either breast. For these reasons, complete bilateral breast ultrasound examination was performed. ULTRASOUND: Right breast: 12:00 4.5 cm from nipple: Parallel circumscribed sonolucency measuring 1.3 x 6 mm, without internal vascularity or posterior shadowing, consistent with simple cyst Left breast: 12:00 subareolar area 3 x 5 mm sonolucency without internal vascularity or posterior shadowing, most consistent with benign cyst 1-2:00 6 cm from nipple: Parallel circumscribed 10 x 23 mm minimally septated cyst with through transmission posterior enhancement, no internal vascularity 9:00 3 cm from nipple: 1.8 x 5.2 mm parallel circumscribed sonolucency, without internal vascularity or posterior shadowing, benign in appearance, likely simple cyst 1:00 subareolar area: Parallel circumscribed 3 x 5.5 x 6.7 mm complex lesion with mild septal internal vascularity, with no posterior shadowing, probably benign IMPRESSION: 1. Probably benign left 1:00 subareolar 6.7 mm complex lesion 2. Six-month targeted left breast 1:00 subareolar ultrasound follow-up is recommended BI-RADS category 3, probably benign findings. THREADER MTDD
== END 2023-07-20 08:14 ==
LOC: MICIMG 08:15
PROVIDERS: PCP Obstetrics & Gynecology; Visit Provider Obstetrics & Gynecology
DX: R92.8 Other abnormal and inconclusive findings on diagnostic imaging of breast (principal); N63.10 Unspecified lump in the right breast, unspecified quadrant
CPT/HCPCS: 76641; 77062; 77066; G0279

== ENCOUNTER 2023-07-20 08:16 | Outpatient (CLI) | payer BC, SELFPAY ==
--- NOTE | ~2023-07-20 | US_ITS ---
EXAMINATION: US soft tissue head and neck DATE: 07/20/2023 08:51 INDICATION: Disorder of skin and subcutaneous tissues with palpable abnormality at the right supracla vicular region TECHNIQUE: Multiple grayscale and Doppler ultrasound images of the right supraclavicular region of co ncern were obtained. COMPARISON: None FINDINGS: There is approximately 6 x 6 x 3 mm hypoechoic and partially shadowing nodule with ill-defined margin s along the deep margin of the dermis at the region of concern. A small vessel with vascular flow on color Doppler extends along the deep margin of the nodule. No pathologically enlarged lymphadenopathy or other abnormal masses or fluid collections identified. IMPRESSION: 1. Nonspecific 6 x 6 x 3 mm nodule along the deep margin of the dermis at the region of concern. Reviewed, dictated and finalized at location B. IMPRESSION: 1. Nonspecific 6 x 6 x 3 mm nodule along the deep margin of the dermis at the r egion of concern.
== END 2023-07-20 08:17 ==
LOC: MICIMG 08:16
PROVIDERS: PCP Internal Medicine; Visit Provider Internal Medicine
DX: L98.9 Disorder of the skin and subcutaneous tissue, unspecified (principal)
CPT/HCPCS: 76536

== ENCOUNTER 2023-08-15 01:52 | Day surgery (SDC) | payer BC, SELFPAY ==
--- NOTE | 2023-08-13 15:51 | PC.NURSE ---
Report to the Outpatient Waiting Room, entrance under the green pavilion located off [facility], at time __1130____ on date _[id number] . Planned Procedure Time: ___1330 . Time changes happen often and if your time is changed the preop area will call you the afternoon before. - You and your visitor will be asked to self-screen and do not enter if you have any COVID symptoms. - A mask is optional within the hospital at this time. Patients may have clear liquids (water, carbonated beverages, clear teas, apple juice) until 3 hours prior to surgery with a maximum of 20 ounces. - No food from midnight until time of surgery - Take the following medications with a SIP of water the morning of surgery: N/A PATIENT IS ON NO HOME MEDS Please no make-up, nail albanian, hairspray, perfume, deodorant, or body powder the day of surgery. No jewelry (including any body piercings) or valuables the day of surgery, leave them at home. Please take a shower or bath the night before, or the morning of, surgery with an antibacterial soap. Wear comfortable, loose fitting clothing. Children are encouraged to wear pajamas. - Jewelry must be removed prior to entering the operating room. Rings and piercings that are not removed may be cut off. - The hospital will not accept responsibility for valuables. - Please leave all valuables, including medications, at home the day of surgery. If you are going home after surgery, a licensed refrigerated company driver must drive you home. - NO public transportation without another adult if you receive anesthesia. - We recommend that an adult stay with you for 24 hours following discharge. - We also recommend that you do not drive, make important decision, drink alcoholic beverages, or take any drugs that were not prescribed by your health care provider for at least 24 hours after your discharge time. Follow any additional instructions given to you from your surgeon. If you or anyone in your household have experienced Covid symptoms in the past week, please notify your surgeon or the nurse liaison at the phone number below for possible testing. Telephone instructions given to __Hope (patient) and asked if any additional questions and then verbalized understanding. Patient advised to call surgeon office or pre surgery nurse liaison [phone] if any additional questions.
[2023-08-13 15:59] VITALS: BMI 24.0
[2023-08-15] MEDS: LACTATED RINGERS 1,000 ML 30 ML IV CONT ×2 (10:54→13:07)
[2023-08-15 10:55] VITALS: BP 110/68; PULSE 77; RESP 16; TEMP 37.3; O2SAT 100
--- NOTE | 2023-08-15 11:24 | WPDANESEPPF ---
Anes - Initial Pre Proc Eval Procedure: Operation Date: 08/15/23 12:00 Proposed Procedures p Excisional Biopsy of Right Supraclavicular Mass - Jocelyn Elizondo MD Date/Time: 08/15/23 11:24 Surgeon: Jocelyn Elizondo MD Pre Op Diagnosis: Right Supraclavicular Mass Patient Data Age: 42 Gender: F Height: 1.63 m Weight: 66 kg Last Vital Signs Temp 99.2 F 08/15/23 10:55 Pulse 77 08/15/23 10:55 Resp 16 08/15/23 10:55 BP 110/68 08/15/23 10:55 Pulse Ox 100 08/15/23 10:55 O2 Del Method Room Air 08/15/23 10:55 Allergies Allergy/AdvReac Type Severity Reaction Status Date / Time No Known Allergies Allergy Verified 08/15/23 10:27 Home Medications Medication Instructions Recorded Confirmed Type No Home Medications 07/25/23 08/13/23 History Patient hx anesthesia problems: none Family hx anesthesia problems: none Results Review: All pre-operative results and documents have been reviewed as part of the pre-operative evaluation. [facility] Past Medical History Medical History Cervical abrasion FH: cholecystectomy Surgical History Surgical History H/O dilation and curettage H/O lumpectomy Excisional biopsy R breast mass 2010 History of bilateral tubal ligation History of breast augmentation 2014 History of breast implant removal 2022 History of endometrial ablation Hx laparoscopic cholecystectomy 2015 Hx of hysterectomy 2020- Dr. Rodriguez Family History Family History Father Leukemia Mother No problems noted. Mother Family history of epilepsy Patient's mother is in good health Father Patient's father is Family history of malignant neoplasm Other Cerebrovascular accident Family history of allergic disorder Hypertension Social History Social History Smoking packs per day: 0.1 Smoking cigarettes per day: 2.0 Years smoked: 4 Smoking pack-years: 0.40 Smoking status: Never smoker Tobacco type: cigarettes Second hand tobacco smoke exposure: No Smoking end date: 02/15/11 Alcohol intake: current Drinks per week: 4 Alcohol use details: Beer or wine Substance use: never Substance use type: does not use Lack of Transportation: No Lack of Food: Never True Current Housing: I Have Housing Concerned About Future Housing: No Difficulty Paying Gas/Electric Bills: No Difficulty Paying for Meds: No Currently Unemployed: No Education: Associate Degree Difficulty w/ Childcare or Family Care: No Living arrangements: with family Spiritual care concerns: No Anes - Eval Final PreProcedure Day of Procedure 08/15/23 11:24 Patient weight: normal Heart: regular rate and rhythm Lungs: clear to auscultation Airway: Mallampati scale class II Neurological: alert and oriented Last oral intake: >/= 8 hours ASA classification: I Emergent: no Anesthetic plan: proceed Anesthesia type and monitoring: general LMA and standard monitoring Results Review: All pre-operative results and documents have been reviewed as part of the pre-operative evaluation. Informed Consent: The patient's anesthetic plan and its attendant risks and benefits were discussed with the patient/family/POA. Questions were solicited and answers provided to the satisfaction of the patient/family/POA.
--- NOTE | 2023-08-15 12:02 | WPDHPUPDATE1 ---
History and Physical Update Update Date/Time: 08/15/23 12:02 History and Physical has been reviewed, including an updated exam of the patient. There are NO changes in the patient's condition. Risks, benefits, and alternatives have been discussed and questions answered. Patient agrees to proceed with procedure. will take to OR for excisional biopsy right supraclavicular mass
[2023-08-15] MEDS: ceFAZolin 2 GM/D5W 50 ML 2 GM/50 ML BAG IVPB (12:07)
[2023-08-15] MEDS: BUPIVACAINE/EPINEPHRINE 0.5% 30 ML VIAL 18 ML INFILTRATE (12:29)
[2023-08-15 12:46] VITALS: BP 107/56; PULSE 103; RESP 16; O2SAT 98
--- NOTE | 2023-08-15 12:52 | P.OP_ITS ---
Procedure Note - Detailed Date of Procedure 08/15/23 Pre-op Diagnosis Right Supraclavicular Mass Post-op Diagnosis Same Procedure Performed Excisional biopsy right supraclavicular mass Surgeon Jocelyn Elizondo MD Anesthesia MAC and Local Indications 42-year-old female presenting to the office with right supraclavicular mass. The mass was noted to be small and within the deep dermal layer by imaging. Given that inaccessibility for ultrasound-guided biopsy, the decision was made for open excisional biopsy. Findings Deep dermal mass in the right supraclavicular region Description of Procedure The patient was taken the operating room and placed in supine position. After adequate induction of MAC anesthesia, the patient was prepped and draped in the normal sterile fashion. A time-out was then done to patient's identity, as well as procedure being performed. I began by localizing the area and around this mass in the right supraclavicular region. Of note, there was a mole overlying the mass with a subtle fullness underneath the mole. I then made an elliptical incision in the dermis to include the mole in the overlying dermis. Taking this incision through the dermis and into the subcutaneous tissue, there was noted to be a subtle nodule in the deep dermis. This was excised in full including the overlying skin and some underlying subcutaneous tissue. And will now be sent to pathology for further review. I then gained hemostasis with the Bovie cautery. Further local anesthetic was placed. The subcutaneous tissue was closed with 3- 0 Vicryl suture. The skin was closed with 4-0 Monocryl subcuticular suture. Dermabond was then placed on the wound. The patient tolerated the procedure well and was alert and awake in the operating room postoperatively. She will be transferred to the recovery room in stable condition.
[2023-08-15 13:15] VITALS: BP 112/64; PULSE 82; RESP 13; O2SAT 100
[2023-08-15 13:45] VITALS: BP 129/70; PULSE 88
== END 2023-08-15 14:08 | disposition home or self-care (01) ==
PROVIDERS: PCP Internal Medicine; Visit Provider Surgery
PROC: (CPT 21555; principal; 2023-08-15 12:00)
DX: D17.1 Benign lipomatous neoplasm of skin and subcutaneous tissue of trunk (principal); Z87.891 Personal history of nicotine dependence
CPT/HCPCS: 21555; 88304; J0690; J2250; J2405; J2704; J3010; J7120

== ENCOUNTER 2023-11-23 12:47 | Outpatient (CLI) | payer BC, SELFPAY ==
--- NOTE | ~2023-11-23 | MR_ITS ---
MRI of the right shoulder Technique: Axial proton-density fat-sat images, coronal proton density fat-sat and T2 fat-sat images, and sagittal T1-weighted and T2 fat-sat images were acquired. Clinical History: Pain Findings: There is no significant degenerative changes AC joint. Coracoclavicular, coracoacromial, co racohumeral ligaments are intact. Supraspinatus and infraspinatus tendons are intact, without partial or full-thickness tear. Subscapul nitin tendon is intact. Tendon of long head of the biceps is intact. No labral tear evident. Inferior glenohumeral ligament is intact. No degenerative change or effusion of the glenohumeral join t. There is minimal fluid in the subacromial/subdeltoid bursa. No muscle atrophy or edema. Impression: Possible minimal subacromial/subdeltoid bursitis, otherwise unremarkable exam. Reviewed, dictated and finalized at [facility]. Impression: Possible minimal subacromial/subdeltoid bursitis, otherwise unremarkable exam.
== END 2023-11-23 12:48 ==
LOC: MICIMG 12:47
PROVIDERS: PCP Internal Medicine; Visit Provider Internal Medicine
DX: M25.511 Pain in right shoulder (principal); L98.9 Disorder of the skin and subcutaneous tissue, unspecified
CPT/HCPCS: 73221

== ENCOUNTER 2023-12-14 09:21 | Outpatient (CLI) | payer BC, SELFPAY ==
--- NOTE | ~2023-12-14 | MMUS_ITS ---
EXAMINATION: MM diagnostic cecy LT w emily, US breast LT limited HISTORY: Follow-up palpable left breast abnormality TECHNIQUE: Additional 3-D tomosynthesis images of the left breast were performed and synthetic 2-D im ages were generated. CAD analysis was submitted and interpreted. High resolution Limited left breast ultrasound was performed. COMPARISON: 07/20/2023 BREAST PARENCHYMAL COMPOSITION: Dense: The breasts are heterogeneously dense, which may obscure small masses FINDINGS: MAMMOGRAPHIC FINDINGS: There is a 2.6 cm mass which is partially obscured in the upper outer quadrant of the left breast. Th ere are no suspicious calcifications or architectural distortion. ULTRASOUND: Limited left breast ultrasound: In the subareolar location of the left breast there is a small cluste r of cysts measuring 4 mm. At 2:00, 6 cm from the nipple in the area palpable concern there is a 2.5 cm simple cyst corresponding to the mammographic and palpable abnormality. No sonographic evidence fo r malignancy. IMPRESSION: 1. No evidence for malignancy in the left breast. Benign findings. 2. Routine yearly screening mammogram and regular clinical breast examination are recommended. BI-RADS Category 2: Benign finding(s). Reviewed, dictated and finalized at location B. IMPRESSION: 1. No evidence for malignancy in the left breast. Benign findings. 2. Routine yearly screening mammogram and regular clinical breast examination a re recommended. BI-RADS Category 2: Benign finding(s).
== END 2023-12-14 09:22 ==
PROVIDERS: PCP Obstetrics & Gynecology; Visit Provider Obstetrics & Gynecology
DX: R92.8 Other abnormal and inconclusive findings on diagnostic imaging of breast (principal)
CPT/HCPCS: 76642; 77061; 77065; G0279

== ENCOUNTER 2024-10-17 07:48 | Outpatient (CLI) | payer OTHER, SELFPAY ==
--- NOTE | ~2024-10-17 | MM_ITS ---
Examination: MM diagnostic SURY BI W emily INDICATION: 43-year old female; nonfocal RIGHT Breast pain radiates into the right axilla x6 months. Screening left mammogram. COMPARISON: 07/20/2023 through 02/03/2020 TECHNIQUE: Digital breast tomosynthesis CC and MLO of Both breasts and True lateral view of Both elias sts were obtained with computer-aided detection to assist in interpretation of the study. FINDINGS: The breasts are heterogeneously dense, which may obscure small masses. There are no suspicious masses, calcifications, architectural distortion or other abnormalities in Fabien th breasts. Dominant circumscribed mass in the upper outer left breast has been previously shown to r epresent a benign simple cyst. IMPRESSION: Benign mammogram. No evidence of malignancy in Both breasts. RECOMMENDATIONS: 1. CLINICAL MANAGEMENT OF PATIENT'S BREAST PAIN. 2. IF THE PATIENT HAS HIGH RISK FACTORS FOR DEVELOPING BREAST CANCER, SUCH , BUT NOT LIMITED TO, DE NSE BREASTS, POSITIVE GENE MARKERS, FIRST DEGREE RELATIVE WITH BREAST CANCER WHO IS NOT TESTED FOR GE NE MARKERS, OR GREATER THAN 20% LIFETIME RISK OF DEVELOPING BREAST CANCER, SUPPLEMENTAL BREAST MRI SC REENING (ULTRASOUND IF MRI IS CONTRAINDICATED), IN ADDITION TO ANNUAL SCREENING MAMMOGRAPHY, SHOULD B E CONSIDERED AND DISCUSSED WITH THE PATIENT. BI-RADS 2, BENIGN Reviewed, dictated and finalized at location B. IMPRESSION: Benign mammogram. No evidence of malignancy in Both breasts. RECOMMENDATIONS: 1. CLINICAL MANAGEMENT OF PATIENT'S BREAST PAIN. 2. IF THE PATIENT HAS HIGH RISK FACTORS FOR DEVELOPING BREAST CANCER, SUCH , BUT NOT LIMITED TO, DENSE BREASTS, POSITIVE GENE MARKERS, FIRST DEGREE RELATIVE WITH BREAST CANCER WHO IS NOT TESTED FOR GENE MARKERS, OR GREATER THAN 20% LIF ETIME RISK OF DEVELOPING BREAST CANCER, SUPPLEMENTAL BREAST MRI SCREENING (ULTR ASOUND IF MRI IS CONTRAINDICATED), IN ADDITION TO ANNUAL SCREENING MAMMOGRAPHY, SHOULD BE CONSIDERED AND DISCUSSED WITH THE PATIENT. BI-RADS 2, BENIGN
== END 2024-10-17 07:49 | disposition home or self-care (01) ==
LOC: MICIMG 07:49
PROVIDERS: PCP Obstetrics & Gynecology; Visit Provider Obstetrics & Gynecology
DX: N64.4 Mastodynia (principal)
CPT/HCPCS: 77062; 77066; G0279